=== PATIENT | female | born 1970 | race Caucasian/White ===

== ENCOUNTER 2018-08-04 06:58 | Day surgery (SDC) | END 2018-08-04 13:40 | disposition home or self-care (01) ==

== ENCOUNTER 2018-08-28 16:37 | Emergency (ER) | END 2018-08-28 19:30 | disposition home or self-care (01) ==

== ENCOUNTER 2018-09-23 13:09 | Emergency (ER) | END 2018-09-23 15:26 | disposition home or self-care (01) ==

== ENCOUNTER → 2018-10-21 | Outpatient (CLI) | payer MEDICAID ==
[~2018-10-21] MED LIST: ACET-2047 PO; LORA10CA PO; METO10TA3 PO
--- NOTE | 2018-10-24 09:28 | RADRPT ---
Echocardiogram Report Patient Name: THONY BHATTI Gender: Female Date: 1970 Study Date: 21-Oct-2018 Stock Buyer: Pool Wilburn RDCS Location: EKG Ref. Physician: MARK FOFANA Quality: Adequate Procedures: Transthoracic echocardiogram with complete 2D, M-Mode, and doppler examination. Indications: Breast CA. 2D/M Mode Doppler Measurement Value Normal Ranges Measurement Value Normal Ranges LVIDd 2D 4.2 3.5 - 5.6 cm AV Peak Miguel 1.5 m/sec LVIDs 2D 2.8 2.1 - 4.1 cm AV Peak PG 10.0 mmHg LVPWd 2D 1.0 0.6 - 1.1 cm LVOT Peak Miguel 1.1 m/sec IVSd 2D 1.1 0.6 - 1.1 cm LVOT Peak PG 5.0 mmHg AoR Diam 2D 2.7 2.0 - 3.7 cm MV E Peak Miguel 1.0 m/sec LA/Ao 2D 1 0 - 1 MV A Peak Miguel 0.8 m/sec LA Dimen 2D 3.4 2.3 - 4.0 cm MV E/A 1.2 MV Decel Time 236 msec Lat E` Miguel 0.1 m/sec Lateral E/E` 9.7 Med E` Miguel 0.1 m/sec MV E/A 1.2 TR Peak Miguel 2.6 m/sec TR Peak PG 27.0 mmHg RVSP 30.0 mmHg Findings Left Ventricle: Normal left ventricular systolic function. Normal left ventricular cavity size. Normal left ventricular wall thickness. Ejection fraction is visually estimated at 65 %. Tissue Doppler/Mitral Doppler indices are within normal limits. Right Ventricle: Normal right ventricular size. Normal right ventricular systolic function. Left Atrium: The left atrium is normal in size. Right Atrium: The right atrium is normal in size. Mitral Valve: Normal appearance of the mitral valve. Normal appearance and function of the mitral valve with trace physiologic regurgitation. Aortic Valve: Normal appearance of the aortic valve. No significant aortic stenosis or insufficiency. Tricuspid Valve: Normal appearance of the tricuspid valve. Estimated peak PA systolic pressure 30 mmHg. There is trace tricuspid regurgitation. Pulmonic Valve: Pulmonic valve not well visualized. There is trace pulmonic regurgitation. Pericardium: Normal pericardium with no significant pericardial effusion. Aorta: Normal aortic root. IVC: Normal size and normal respiratory collapse consistent with normal right atrial pressure. Conclusions Normal left ventricular systolic function. Normal left ventricular cavity size. Normal left ventricular wall thickness. Ejection fraction is visually estimated at 65 %. Tissue Doppler/Mitral Doppler indices are within normal limits. No significant valvular stenosis or regurgitation seen. Normal appearance of the tricuspid valve. Estimated peak PA systolic pressure 30 mmHg. There is trace tricuspid regurgitation. Electronically Signed By: Yony Roldan 24-Oct-2018 09:26:50 -0800 Patient Name: THONY BHATTI Study Date: 21-Oct-2018 [id number]
== END | disposition home or self-care (01) ==
LOC: EKG 09:04
PROVIDERS: ATTEND Internal Medicine Hematology & Oncology
DX: C50.919 Malignant neoplasm of unspecified site of unspecified female breast (principal)
CPT/HCPCS: 93306

== ENCOUNTER → 2018-12-30 | Outpatient (CLI) | payer MEDICAID ==
--- NOTE | 2018-12-30 17:39 | RADRPT ---
Echocardiogram Report Patient Name: THONY BHATTIPatient ID: [id number] : 1970 (48y 6m)Study Date: 12/30/2018 10:35:59 AM Gender: FAccession #: [id number] Tech: Location: Ref.Physician: MARK FOFANA Height(Cm): BSA: Weight(Kg): Quality: GoodAccount #: Procedures: Echocardiographic Report: Transthoracic echocardiogram with complete 2D, M-Mode, and doppler examination. Indications: Breast CA. Measurements: 2D/M Mode Doppler Measurement Value Normal Range Measurement Value Normal Range LVIDd 2D 4.3 [ 3.8 - 5.2 ] cm NERISSA VTI 2.2 [ 2.0 - 4.0 ] cm2 LVIDs 2D 3.0 [ 2.2 - 3.5 ] cm AV Mean Miguel 1.0 [ 70.0 - 90.0 ] cm/sec LVPWd 2D 1.0 [ 0.6 - 0.9 ] cm AV Mean PG 4.0 [ 2.0 - 4.0 ] mmHg IVSd 2D 1.0 [ 0.6 - 0.9 ] cm AV VTI 28.1 cm EDV 2D 84.4 [ 46.0 - 106.0 ] ml LVOT Mean Miguel 0.7 [ 60.0 - 80.0 ] cm/sec ESV 2D 35.6 [ 14.0 - 42.0 ] ml LVOT Mean PG 2.0 [ 1.0 - 3.0 ] mmHg EF 2D 57.8 [ 54.0 - 74.0 ] percent LVOT Peak Miguel 1.0 [ 70.0 - 110.0 ] cm/sec LVOT Diam 2.0 [ 2.1 - 2.5 ] cm LVOT Peak PG 4.0 [ 2.0 - 6.0 ] mmHg LVOT VTI 19.2 [ 20.0 - 30.0 ] cm MV E Peak Miguel 1.1 [ 60.0 - 130.0 ] cm/sec MV A Peak Miguel 0.8 [ 100.0 - 120.0 ] cm/sec MV E/A 1.3 [ 0.8 - 1.5 ] ratio MV Decel Time 218 [ 104 - 258 ] msec Lat E` Miguel 0.1 [ 10.0 - 15.0 ] cm/sec Lateral E/E` 11.2 [ 1.0 - 2.0 ] ratio Med E` Miguel 0.1 cm/sec MV E/A 1.3 [ 0.8 - 1.5 ] ratio PV Peak Miguel 0.7 [ 40.0 - 80.0 ] cm/sec PV Peak PG 2.0 mmHg Findings: Left Ventricle: Normal left ventricular systolic function. Normal left ventricular cavity size. Normal left ventricular wall thickness. Ejection fraction is visually estimated at 55-60 %. Tissue Doppler/Mitral Doppler indices are consistent with pseudonormalization with mildly elevated left atrial pressure (Stage II diastolic dysfunction). Right Ventricle: Normal right ventricular size. Normal right ventricular systolic function. Left Atrium: The left atrium is normal in size. Right Atrium: The right atrium is normal in size. Atrial Septum: Normal atrial septum. Mitral Valve: Normal appearance and function of the mitral valve with trace physiologic regurgitation. Aortic Valve: Normal appearance of the aortic valve. No significant aortic stenosis or insufficiency. Tricuspid Valve: Normal appearance and function of the tricuspid valve with trace physiologic regurgitation. Pulmonic Valve: Normal pulmonic valve appearance. Pericardium: Normal pericardium with no significant pericardial effusion. Aorta: Normal aortic root. IVC: Normal size and normal respiratory collapse consistent with normal right atrial pressure. Conclusions: Normal left ventricular systolic function. Normal left ventricular cavity size. Normal left ventricular wall thickness. Ejection fraction is visually estimated at 55-60 %. Tissue Doppler/Mitral Doppler indices are consistent with pseudonormalization with mildly elevated left atrial pressure (Stage II diastolic dysfunction). Normal appearance and function of the mitral valve with trace physiologic regurgitation. Normal appearance and function of the tricuspid valve with trace physiologic regurgitation. Electronically Signed By: Anil Miramontes 2018-12-30 17:38:18 PDT
== END | disposition home or self-care (01) ==
LOC: EKG 10:08
PROVIDERS: ATTEND Internal Medicine Hematology & Oncology
DX: C50.919 Malignant neoplasm of unspecified site of unspecified female breast (principal)
CPT/HCPCS: 93306

== ENCOUNTER 2019-02-13 09:16 | Inpatient (IN) | payer MEDICAID ==
[~2019-02-13] VITALS: Ht 152.4 cm; Wt 64.3 kg
[2019-02-13] VITALS (24 sets, daily range): BP systolic 107–135; BP diastolic 60–80; PULSE 61–84; RESP 11–21; Ht 152.4 cm; Wt 64.3 kg
[~2019-02-13 09:16] MED LIST changes: +EPHEDrine 25 MG/5 ML SYG ONE; +GLYCOPYRROLATE 0.4 MG INJ ONE; +PHENYLephrine (100 MCG/ML) 10ML SYG ONE
[2019-02-13] MEDS ORDERED: ACETAMINOPHEN 500 MG TAB PO ONE (09:30)
[2019-02-13] MEDS ORDERED: CEFAZOLIN 2 GM/50 ML (PMX) 50 ML IVPB ONE (11:00)
[2019-02-13] MEDS ORDERED: SOD CHLORIDE 0.9% 1,000 ML IV ONE (11:00)
[2019-02-13] MEDS ORDERED: ISOSULFAN BLUE 1% 5 ML INJ SC ONE (13:24)
[2019-02-13] MEDS ORDERED: MEPERIDINE 25 MG INJ IV PRN (13:30)
[2019-02-13] MEDS ORDERED: OXYCODONE/ACETAMINOPHEN (5/325) TAB PO PRN ×2 (13:30)
[2019-02-13] MEDS ORDERED: HYDROmorphONE 1 MG/5 ML IV SYRINGE IV PRN ×3 (13:30)
[2019-02-13] MEDS ORDERED: ONDANSETRON 4 MG INJ IV PRN (13:30)
[2019-02-13] MEDS ORDERED: LABETALOL HCL 20MG INJ IV PRN (13:30)
[2019-02-13] MEDS ORDERED: morphine (1 MG/ML) 10ML SYRINGE IV PRN ×2 (13:30)
[2019-02-13] MEDS ORDERED: ALBUTEROL 0.083% (NEB) 2.5 MG/3 ML AMP HHN PRN (13:30)
[2019-02-13] MEDS ORDERED: FENTAnyl 50 MCG/ML VIAL IV PRN ×2 (13:30)
[2019-02-13] MEDS ORDERED: DIPHENHYDRAMINE 50 MG INJ IV PRN (13:30)
--- NOTE | 2019-02-13 13:30 | PREAC ---
Date/Time of Note Date/Time of Note DATE: 02/13/19 TIME: 13:28 Anesthesia Eval and Record Evaluation Time Pre-Procedure Interview DATE: 02/13/19 TIME: 13:28 Age 48 Sex female NPO: 8 hrs Preoperative diagnosis R breast CA Planned procedure R needle loc partial mastectomy, axillary node dissection Past Medical History Past Medical History: Includes (chemo last month) Surgery & Anesthesia Issues No known issue Meds Anticoagulation: No Beta Catarina within 24 hr: No Reason Beta Catarina not given: Pt. not on B-Catarina Discontinued Reported Medications Loratadine* (Claritin*) 10 Mg Capsule, 10 MG PO DAILY, CAP 09/23/18 Acetaminophen* (Acetaminophen*) 650 Mg Tablet, 650 MG PO Q6H PRN for PAIN AND OR ELEVATED TEMP, #30 TAB 09/23/18 Metoclopramide Hcl* (Metoclopramide Hcl*) 10 Mg Tablet, 10 MG PO Q6H PRN for NAUSEA AND OR VOMITING, TAB 09/23/18 Current Medications Sodium Chloride 1,000 ml @ 75 mls/hr [id number] ONCE IV Last administered on 02/13/19at 11:00; Admin Dose 75 MLS/HR; Start 02/13/19 at 11:00; Stop 02/14/19 at 00:19 Meds reviewed: Yes Allergies Coded Allergies: No Known Allergy (Unverified , 02/13/19) Allergies Reviewed: Yes Labs/Studies Labs Reviewed: Reviewed by anesthesiologist test: Negative Pre-procedure Exam Last vitals Vital Signs Date Temp Pulse Resp B/P (MAP) Pulse Ox O2 O2 Flow FiO2 Time Delivery Rate 02/13/19 97.3 66 16 119/63 100 12:46 (81) Airway: Adequate mouth opening, Adequate thyromental dist Mallampati: Mallampati II Teeth: Normal Lung: Normal Heart: Normal ASA Physical Status ASA physical status: 2 Emergency: None Planned Anesthetic General/MAC: LMA Pre-operative Attestations Prior to commencing anesthesia and surgery, the patient was re-evaluated, there was verification of: *The patient's identity *The results of appropriate recent lab work and preoperative vital signs *The above evaluation not changing prior to induction *Anesthetic plan, risk benefits, alternative and complications discussed with patient/family; questions answered; patient/family understands, accepts and wishes to proceed. GABE HUNTER Feb 13, 2019 13:30
[2019-02-13] MEDS ORDERED: FENTAnyl 50 MCG/ML VIAL ONE (13:33)
[2019-02-13] MEDS ORDERED: MIDAZOLAM 1 MG/ML 2 ML INJ ONE (13:33)
[2019-02-13] MEDS ORDERED: FAMOTIDINE 20 MG INJ ONE (13:47)
[2019-02-13] MEDS ORDERED: ONDANSETRON 4 MG INJ ONE (13:47)
[2019-02-13] MEDS ORDERED: CEFAZOLIN 1 GM INJ ONE (13:47)
[2019-02-13] MEDS ORDERED: LIDOCAINE 2% (SDV) 5 ML INJ ONE (13:47)
[2019-02-13] MEDS ORDERED: PROPOFOL 40 ML ONE (13:47)
[2019-02-13] MEDS ORDERED: ACETAMINOPHEN 1000MG/100ML IV 100 ML IVPB PRN (15:00)
--- NOTE | 2019-02-13 15:00 | SIPON ---
Date/Time of Note Date/Time of Note DATE: 02/13/19 TIME: 14:58 Operative Report Preoperative Diagnosis Locally advanced right breast cancer Postoperative Diagnosis Same Operation/Procedure Performed Right needle directed partial mastectomy and axillary dissection utilizing sentinel lymph node technique Surgeon see signature line assistant floor covering printer Dr Mclean Anesthesia: general Estimated blood loss: 10 - 50 ml's Transfusion Required none Specimen Right partial mastectomy specimen and sentinel lymph node with additional axilla ry nodes Grafts/Implants none Complications none CHE HOU MD Feb 13, 2019 15:00
--- NOTE | 2019-02-13 15:18 | PAC ---
Date/Time of Note Date/Time of Note DATE: 02/13/19 TIME: 15:17 Post-Anesthesia Notes Post-Anesthesia Note Last documented vital signs Vital Signs Date Temp Pulse Resp B/P (MAP) Pulse Ox O2 O2 Flow FiO2 Time Delivery Rate 02/13/19 98.0 14:46 02/13/19 98.1 66 66 16 16 119/63 100 100 face 12:46 1513 (81) 119/ mask 6L 72 Activity: WNL Respiratory function: WNL Cardiovascular function: WNL Mental status: Baseline Pain reasonably controlled: Yes Hydration appropriate: Yes Nausea/Vomiting absent: Yes GABE HUNTER Feb 13, 2019 15:18
--- NOTE | 2019-02-13 15:18 | OPR ---
DATE OF OPERATION: 02/13/2019 POSTOPERATIVE DIAGNOSIS: Locally advanced right breast cancer. POSTOPERATIVE DIAGNOSIS: Locally advanced right breast cancer. PROCEDURE: Right partial mastectomy and axillary dissection utilizing sentinel lymph node technique. ANESTHESIA: General. ANESTHESIOLOGIST: Nurse tail worker, Orin Marie. SURGEON: Ilir Johnson MD [employer]: Rico Glasgow MD INDICATIONS FOR PROCEDURE: Patient is a 48-year-old female who presented with large right breast mas s. She underwent core biopsy that confirmed a poorly differentiated cancer. She also had a core bio psy of an enlarged axillary lymph node which was also positive for malignancy. She says she was indy apurva with neoadjuvant chemotherapy. She has very good response, was deemed a candidate for breast con servation surgery. She consented and was scheduled for surgery. DESCRIPTION OF PROCEDURE: On the morning of surgery, the patient presented to [facility] where she underwent localization of the residual lesion performed by attending rad iologist, Dr. Wade Gamble. Subsequently, she was brought to the operating theater, placed under general anesthesia. The right breast and axillary region was prepped and draped in usual sterile fas hion. Approximately 3 to 4 mL of 1% Lymphazurin blue dye was then injected peritumorally and the dre ast was gently massaged for approximately 12 minutes. At this point, a 4 cm incision was made in the right axillary hairline. Subcutaneous tissue was dissected with cautery down through the clavipecto ral fascia. Dye stained lymphatic was identified and traced to a sentinel node which although it was not very large, it was very firm, highly suspicious for malignancy. There were several other very s uspicious lymph nodes noted. Therefore, Dr. Johnson proceeded with axillary dissection with blunt diss ection along the chest wall. The long thoracic nerve was identified and moved out of harm's way. Mo re superiorly, the axillary vein was identified, dissected from medial to lateral. The thoracodorsal neurovascular bundle was then identified, dissected throughout its course and kept out of harm's way . Level 1 and level 2 node bearing tissue was then meticulously resected with the Voyant device. Sp ecimen was removed and sent for intraoperative analysis performed by attending pathologist, Dr. Mehran vo. He stated that touch imprint was nondiagnostic of the sentinel node and deferred to permanent pat hology. The wound was irrigated. Minimal bleeding was controlled with cautery. A #10 [place] Jackso n-Sanchez drain was then brought through the right mid axillary line. It was cut to size, laid within the axilla. It was secured in place with 2-0 nylon suture in a standard fashion. A skin incision wa s then reapproximated with 4-0 Vicryl suture in subcuticular fashion. Attention was then directed performing the partial mastectomy. A curvilinear incision was made in th e region of the previously placed localization wire which was in the upper outer quadrant of the myrna st. Subcutaneous tissue was dissected with cautery. The skin edges were then elevated with skin mykel ks and wide circumferential dissection of the tissue associated with the wire then took place, taking great care to ensure adequate margin. Specimen was then transected directly off of the pectoralis m ajor fascia. It was removed, oriented and sent for radiographic confirmation of capture of the clip. Capture was confirmed. Specimen was then sent for permanent pathologic analysis. The wound was ir rigated. Minimal residual bleeding was controlled with cautery. The skin was then closed in 2-layer fashion with a deep dermal layer of 4-0 Vicryl sutures in interrupted fashion, followed by final ski n approximation with 5-0 PDS sutures in subcuticular fashion. Dermabond was then applied to both inc isions. The patient tolerated procedure well. Estimated blood loss was 40 mL. There were no compli cations and the patient was transported in stable condition to the recovery room where circumferentia l compression dressing was applied. Dictated By: ILIR JOHNSON MD TL/SOCO Conf#: [id number] DID#: [id number] CC: RICO GLASGOW MD;*EndCC*
[2019-02-13] MEDS: D5W-0.45 NACL + KCL 20 MEQ 1,000 ML IV SCH (17:23)
[2019-02-13] MEDS: morphine 2 MG INJ IV PRN (17:24)
[2019-02-13] MEDS: ONDANSETRON 4 MG INJ IV PRN (18:36)
[2019-02-13] MEDS ORDERED: HYDROCODONE/APAP (5/325) TAB PO PRN (19:00)
--- NOTE | 2019-02-13 20:13 | HP ---
DATE OF ADMISSION: 02/13/2019 CHIEF COMPLAINT AND HISTORY OF PRESENT ILLNESS: The patient is a 48-year-old female who was diagnose d with large right breast mass. She underwent core biopsy that confirmed fully cancer. The pa olivia also had a positive axillary lymph node for malignancy. The patient was treated with neoadjuva nt chemotherapy with good response. The patient was brought into hospital today and underwent right partial mastectomy and axillary dissection. The patient has postoperative nausea and significant pamela st wall pain and is being referred for further evaluation and management. No history of headache. N o history of dizziness. No history of abdominal pain. No history of focal weakness. No history of chest pain or shortness of breath. No history of cough. REVIEW OF SYSTEMS: Rest of review of systems unremarkable. PAST MEDICAL HISTORY: As stated above. Recent echo revealed EF of 55% to 60%. SOCIAL HISTORY: No smoking or alcohol. FAMILY HISTORY: Noncontributory. ALLERGIES: NONE. PHYSICAL EXAMINATION: GENERAL: Revealed the patient to be awake, alert, fairly oriented. VITAL SIGNS: Temperature 98.2, blood pressure 107/68, pulse 67, respiration 19, pulse ox 98% on room air. HEENT: No eye discharge or redness. Conjunctivae and lids are normal. Oropharynx is clear. NECK: No mass. CHEST: Fairly clear. CARDIOVASCULAR: S1, S2 normal. ABDOMEN: Soft, nondistended, nontender. Bowel sounds are present. EXTREMITIES: No leg edema. NEUROLOGIC: The patient is awake, alert with no gross focal deficit. IMPRESSION: Right breast cancer status post surgery and chemotherapy. PLAN: The patient will be admitted on medical floor and will be started on clear liquid diet, which will be advanced as tolerated. For pain control, the patient will be given Tylenol, [place] and IV mor phine. We will use SCD for DVT prophylaxis and IV Zofran for nausea, vomiting. Further recommendati ons will depend on patient's hospital course. Dictated By: LAKSHMI ARELLANO MD AB/NTS Conf#: [id number] DID#: [id number] CC: CHE HOU MD;*EndCC*
[2019-02-14] MEDS: morphine 2 MG INJ IV PRN (00:09)
[2019-02-14] MEDS: D5W-0.45 NACL + KCL 20 MEQ 1,000 ML IV SCH ×3 (00:10→15:00)
[2019-02-14] MEDS: ONDANSETRON 4 MG INJ IV PRN (00:11)
--- NOTE | 2019-02-14 03:12 | PN ---
Date/Time of Note Date/Time of Note DATE: 02/14/19 TIME: 03:06 Assessment/Plan VTE Prophylaxis Risk score (from Nsg)>0 risk: 6 SCD applied (from Ns): Yes SCD contraindicated: other Pharmacological prophylaxis: other Pharm contraindication: other Lines/Catheters IV Catheter Type (from Nrsg): Peripheral IV Assessment/Plan Assessment/Plan - status post right mastectomy - per surgery - fu CBC; BMP - wound care - monitor fo s/s of infection - monitor x2 BOYD s output - diet per surgery - IV Zofran for nausea, vomiting. -pain control with Tylenol, Mission and IV morphine. - Right breast cancer - status post chemotherapy. -SCD for DVT prophylaxis Further recommendations will depend on patient's hospital course. Tristan Blackmon /staff Subjective 24 Hr Interval Summary Constitutional: requiring IVF Respiratory: no complaints Cardiovascular: no complaints Gastrointestinal: no complaints Genitourinary: no complaints Musculoskeletal: no complaints Skin: other (right bresst surgery) Endocrine: no complaints Psychological: nl mood/affect Exam/Review of Systems Exam Vitals Vital Signs Date Temp Pulse Resp B/P (MAP) Pulse Ox O2 O2 Flow FiO2 Time Delivery Rate 02/13/19 97.9 61 18 118/69 100 Room Air 23:50 (85) 02/13/19 8.0 15:25 Intake and Output 02/13/19 02/13/19 02/14/19 1515:00 23:00 07:00 IntakeIntake Total 2570 ml 400 ml OutputOutput Total 0 ml 72 ml BalanceBalance 0 ml 2498 ml 400 ml Constitutional: well developed Psych: nl mood/affect Eyes: nl lids, nl sclera ENMT: nl external ears & nose Respiratory: clear to auscultation Cardiovascular: nl pulses, other (s1s2) Gastrointestinal: soft, non-tender Musculoskeletal: nl extremities to inspection Extremities: normal pulses Neurological: other (alert/responsive) Skin: other (sp right mastectomy; x2 boyd serousanginous output) Lymph: nontender Medications Medication Current Medications Ondansetron HCl (Zofran Inj) 4 mg Q6H PRN IV NAUSEA AND/OR VOMITING Last administered on 02/14/19at 00:11; Admin Dose 4 MG; Start 02/13/19 at 15:00 Potassium Chloride/Dextrose/ Sod Cl 1,000 ml @ 125 mls/hr Q8H IV Last administered on 02/14/19at 00:10; Admin Dose 125 MLS/HR; Start 02/13/19 at 15:00 Morphine Sulfate (morphine) 2 mg Q1H PRN IV PAIN Last administered on 02/14/19at 00:09; Admin Dose 2 MG; Start 02/13/19 at 15:00 Acetaminophen 100 ml @ 400 mls/hr Q6H PRN IVPB PAIN; Start 02/13/19 at 15:00; Stop 02/14/19 at 14:59 Acetaminophen/ Hydrocodone Bitart ([place]ission (5/325)) 1 tab Q4H PRN PO MODERATE PAIN LEVEL 4-6; Start 02/13/19 at 19:00 DENNIS ESTES Feb 14, 2019 03:12
[2019-02-14 04:00] VITALS: BP 116/70; PULSE 60; RESP 16
[2019-02-14 07:20] VITALS: BP 115/68; PULSE 62; RESP 19
--- NOTE | 2019-02-14 14:52 | PN ---
DATE: 02/14/2019 Postop day #1 status post right breast needle localization partial mastectomy with axillary dissectio n. SUBJECTIVE: No specific complaint. Has started a diet. Has been out of bed and walking around. Pa in is under control. OBJECTIVE: GENERAL: Awake, alert, oriented. VITAL SIGNS: Temperature maximum today 98, heart rate 62, respirations 19, blood pressure 115/68, sa turation 98% room air. HEART: Regular. LUNGS: Clear. CHEST: The dressing is intact. The bias dressing is not too tight. INPUT AND OUTPUT: There are 2 Livan-Sanchez drains over there. These drains altogether from time of operation yesterday to 7:00 today morning have drained 87 mL of fluid in the tubing and the collecti on bag is serosanguineous. The patient's niece was on the bedside. She was taught how to take care of Livan-Sanchez drains, how to empty them and record them on a piece of paper and also patient was advised to call Dr. Johnson[facility] of [facility] tomorrow or today and make an appointment for followup next week. Prescription will be given by the medical service. The patient can be discharged home today. Dictated By: KELLEY GLASGOW MD PS/NTS Conf#: [id number] DID#: [id number] CC: CHE JOHNSON MD; LAKSHMI ARELLANO MD;*EndCC*
[2019-02-14 15:53] VITALS: BP 121/62; PULSE 78; RESP 18
== END 2019-02-14 17:45 | disposition home or self-care (01) | DRG 580 ==
LOC: SDS 09:16 → REC 15:30 → MS1 16:30
PROVIDERS: ADMIT Surgery Surgical Oncology; ATTEND Surgery Surgical Oncology
PROC: 07B50ZZ Excision of Right Axillary Lymphatic, Open Approach (ICD-10-PCS; 2019-02-13)
PROC: 0HBT0ZZ Excision of Right Breast, Open Approach (ICD-10-PCS; principal; 2019-02-13 13:00)
DX: C50.911 Malignant neoplasm of unspecified site of right female breast (principal); C96.9 Malignant neoplasm of lymphoid, hematopoietic and related tissue, unspecified
CPT/HCPCS: 80048; 85025; 88307; 88331; J0690; J2250; J2270; J2370; J2405; J3010; J3480; Q9968